=== PATIENT | male | born 1960 ===

== ENCOUNTER 2021-05-15 21:53 | Emergency (ER) | payer BC ==
--- NOTE | 2021-05-15 22:20 | EDM.PDOC ---
ED HPI GENERAL MEDICAL PROBLEM - General Chief Complaint: Lower Extremity Injury/Pain Stated Complaint: SWOLLEN BACK OF KNEE (R) Time Seen by Provider: 05/15/21 22:20 Source of Information: Reports: Patient, RN Notes Reviewed History Limitations: Reports: No Limitations - History of Present Illness INITIAL COMMENTS - FREE TEXT/NARRATIVE: This patient presents to the emergency department for evaluation of right knee pain. He states [place] in [place] when he began having pain and now is unable to bear weight on his right leg. This is related to the pain he has in his knee. He states he recently had an MRI on his knee and was noted to have a significant amount of arthritis and will be having a consult with an airborne sensor specialist coming up. He denies any falls, twists, or heavy lifting. He states that "just started" while walking. He denies other injuries or concerns. Right Knee Pain Score (Numeric/FACES): 4 - Related Data Allergies Allergy/AdvReac Type Severity Reaction Status Date / Time Penicillins Allergy Mild Abdominal Verified 05/15/21 22:14 Pain Home Meds: Home Meds Omeprazole 20 mg PO DAILY 05/15/21 [History] Rivaroxaban [Xarelto] 20 mg PO DAILY 05/15/21 [History] Review of Systems - Review of Systems Review Of Systems: Comprehensive ROS is negative, except as noted in HPI. ED EXAM, GENERAL - Physical Exam Exam: See Below Exam Limited By: No Limitations General Appearance: Alert, No Apparent Distress Eye Exam: Bilateral Eye: PERRL Ears: Normal External Exam Nose: Normal Inspection Head: Atraumatic, Normocephalic Respiratory/Chest: No Respiratory Distress, No Accessory Muscle Use Extremities: Normal Inspection, Normal Range of Motion, Other (Moving all extremities with full range of motion with exception of right knee. He prefers to have it in approximately 60 degrees of flexion and states he is most comfortable there. There is no swelling, deformity, or discoloration noted to the right knee. Distal CMS is intact.) Neurological: Alert, Oriented Psychiatric: Normal Affect Skin Exam: Warm, Dry, Intact, Normal Color Course - Vital Signs Last Recorded V/S: Last Vital Signs Temp Pulse 70 05/15/21 22:18 Resp BP 142/89 H 05/15/21 22:18 Pulse Ox 96 05/15/21 22:18 - Orders/Labs/Meds Orders: Active Orders 24 hr Category Date Time Status Knee 3V Rt [CR] Stat Exams 05/15/21 22:08 Taken - Re-Assessments/Exams Free Text/Narrative Re-Assessment/Exam: This patient presents to the ER with knee pain. Findings are noted above. Plain films are negative by my interpretation for fracture, or malalignment. He is neurovascularly intact. Quad and patellar tendon function is intact. The knee is grossly stable to stressing without obvious laxity although this is somewhat limited given his pain and voluntary guarding. Given the exam and lack of traumatic effusion I am concerned he may have an internal derangement of the knee including possible ligamentous or meniscal injury. He will be treated with nonweightbearing and was offered a knee immobilizer which he refused. He states he has a knee sleeve that he will use instead as it allows him some degree of flexion. There is no tenderness at his hip or foot to suggest any concurrent injury. His exam and history is clearly musculoskeletal in nature and I am not concerned about a septic joint, deep vein thrombosis, compartment syndrome, or other findings. We discussed supportive care to include immobilization, protected weightbearing, ice and elevation as well as ibuprofen as needed for pain. He should be seen by his primary care provider in 2 to 3 days if he is not better and return here for increasing pain, extremity weakness, numbness, t ingling, or any other concerns. 05/16/21 09:21 Departure - Departure Time of Disposition: 22:30 Disposition: Home, Self-Care 01 Condition: Good Clinical Impression: Knee strain - Discharge Information Instructions: Knee Sprain, Adult, [id number] Referrals: Provider,Unknown [Primary Care Provider] - Forms: ED Department Discharge Additional Instructions: Use the knee sleeve that you have along with your for support. Use ibuprofen 600 mg (3 [id number] tablets) 3 times for day for the next 2-3 days. You can continue to use your opioid pain medication as you need to. Apply ice to the area, rest. Continue to use crutches as needed for comfort. - My Orders Last 24 Hours: My Active Orders 05/15/21 22:08 Knee 3V Rt [CR] Stat - Assessment/Plan Last 24 Hours: My Active Orders 05/15/21 22:08 Knee 3V Rt [CR] Stat
--- NOTE | 2021-05-16 14:16 | CR ---
DATE OF SERVICE: 05/15/21 CLINICAL DATA: knee pain RIGHT KNEE: Mild osteoarthritis with mild narrowing of the medial compartment joint space. There is a small joint effusion. No acute abnormalities. No lytic or blastic bone lesions. [id number] MTDD
== END 2021-05-15 22:25 | disposition home or self-care (01) ==
LOC: LB.ED 21:53
DX: S86.811A Strain of other muscle(s) and tendon(s) at lower leg level, right leg, initial encounter (principal); Z88.0 Allergy status to penicillin; X50.0XXA Overexertion from strenuous movement or load, initial encounter; Y93.01 Activity, walking, marching and hiking
CPT/HCPCS: 73562-RT; 99283-25